=== PATIENT | male | born 1945 | race Caucasian/White ===

== ENCOUNTER → 2019-11-28 10:39 | Outpatient (CLI) | payer OTHER, SELFPAY ==
[2019-11-30 20:58] LABS: COVID19 Sendout Not Detected (Not Detect)
== END ==
PROVIDERS: PCP Family Medicine; Visit Provider Physician Assistant
DX: Z11.59 Encounter for screening for other viral diseases (principal)
CPT/HCPCS: 87635

== ENCOUNTER 2019-12-01 06:10 | Day surgery (SDC) | payer OTHER, SELFPAY ==
[2019-11-24 12:49] VITALS: BMI 27.2
[2019-12-01] VITALS (13 sets, daily range): BP systolic 109–162; BP diastolic 54–91; PULSE 55–94; RESP 14–16; TEMP 35.6–36.6; O2SAT 92–98; BMI 27.2
--- NOTE | 2019-12-01 | DI.RAD.S_ITS ---
PROCEDURE: XR PELVIS 1-2V INDICATIONS: LEFT TOTAL TECHNIQUE: Single view(s) of the pelvis acquired. COMPARISON: None. FINDINGS: Bones: No fractures or dislocations. No suspicious bony lesions. Status post right hip arthroplasty in expected postoperative alignment. The hardware appears intact. Left hip arthroplasty also noted. Soft tissues: Visualized bowel gas pattern is normal. No suspicious soft tissue calcifications. IMPRESSION: Expected postoperative appearance Dictated by: Kip Eid M.D. on 12/01/2019 at 14:46 Approved by: Kip Eid M.D. on 12/01/2019 at 14:48
--- NOTE | 2019-12-01 07:39 | DI.RAD.S_ITS ---
PROCEDURE: XR HIP RT 1V INDICATIONS: post-op. TECHNIQUE: 2 view(s) of the hip acquired. COMPARISON: None. FINDINGS: Bones: Patient is status post and a right hip arthroplasty, with hardware components in expected positions. The hip joint appears congruent. The visualized bony structures appear intact. Soft tissues: Overlying postoperative changes are noted. No suspicious soft tissue densities. IMPRESSION: Normal alignment after right total hip arthroplasty. Dictated by: Blaze Barber M.D. on 12/01/2019 at 10:53 Approved by: Blaze Barber M.D. on 12/01/2019 at 10:54
--- NOTE | 2019-12-01 07:41 | PM.PREOP ---
Pre-operative Note COVID-19 COVID-19 status: Negative Result date/Date tested (Pos, Neg/Pending): 11/28/19 Interval Note History & Physical reviewed/Exam performed by Physician: Yes Changes to H&P: No H&P completed within 30 days and has changed as indicated here:: Plan for right anterior MICHAEL.
[2019-12-01] MEDS: CEFAZOLIN 2 GM/100 ML FROZ.PIGGY IV ×2 (07:45→15:40)
[2019-12-01] MEDS: TRANEXAMIC ACID 1,000 MG VIAL 2000 MG INJ ×2 (08:20→09:43)
--- NOTE | 2019-12-01 08:32 | SUR.OPER ---
Supine on padded Heber table with bilateral legs secured in padded positioning boots and suspended in positioning spars, operative leg in traction per surgeon. Head on one pillow. Arm on non-operative side secured on padded armboard <90 degrees abduction. Arm on operative side padded and resting across chest then secured with tape over sheet. Padded perineal post in place per surgeon.
[2019-12-01] MEDS: ROPIVACAINE 0.5% PF 5 MG/ML 20ML VIAL 10 ML INJ (08:44)
[2019-12-01] MEDS: MORPHINE 4 MG/ML INJ IM (08:45)
[2019-12-01] MEDS: KETOROLAC 30 MG/ML VIAL IV (08:46)
--- NOTE | 2019-12-01 10:01 | P.OP_ITS ---
Operative Date/Time/Diagnoses Date of procedure: 12/01/19 Time of procedure: 10:01 Pre-op diagnosis: right hip OA Post-op diagnosis: same Procedure & Clinicians Procedure: right anterior MICHAEL Same procedure as scheduled: Yes Indications: right hip OA with failed conservative measures Surgeon: Alexey Gutierrez Blocking Machine Operator: Esperanza Pham Anesthesia Type: General and Spinal Operative Notes Findings: right hip OA Closure Type: primary Specimen(s): none sent Prosthetic devices, grafts, tissues, transplants, or devices: [employer]hew 56mm R3 cup 56 x 36mm XLPE neutral liner 25mm screw 15mm screw Anthology femoral stem size 10, high offset Head 36 - 3 oxinium Estimated Blood Loss (mL): 100 Blood products transfused: none Procedure in detail: Patient was met in the preoperative holding area where the site and side of surgery were marked by . All last minute questions were answered. Informed consent had been signed in clinic foot was also reviewed the preoperative holding area. Patient was brought back in the operating room where he received a spinal anesthetic and was then transferred onto the Tecumseh table. Both feet were placed in Tecumseh table boots. He was then induced under general anesthesia. The right hip was then prepped and draped in normal sterile fashion. Surgical time-out was performed verifying the site and side of surgery as well as the name of the patient. A 7 cm long incision centered about 2 cm distal and 1 cm lateral from ASIS was then started with a 10. Blade and carried towards the fibular head. Electrocautery was then used to dissect down to the subcutaneous layer was down to the level of the tensor fascia. Tensor fascia was then incised with a new 10. Blade and Allis clamp was placed on the medial leaflet. The tensor was then retracted medially a Meyerding retractor was then placed over the lateral aspect of the rectus and a Cobra was placed over the superior neck of the femoral neck hemostasis of the ascending circumflex vessels was then achieved using a barnhart it and electrocautery. These were then cut and a Cobra was placed over the inferior neck of the femoral neck giving us good exposure of the capsule. A bent Hohmann placed over the superior lip of the anterior acetabular wall. An inverse T shaped capsulotomy was then performed the superior and inferior leaflets were tagged with a FiberWire stitch cobras were then placed intracapsularly this gave us good exposure of the femoral neck femoral neck was then cut using a reciprocating saw and neck lengths based off of her preoperative template. A corkscrew was then placed in the femoral head the femoral head was removed of soft tissue sleeve protector was then placed into the wound and the labrum was removed. We began reaming with a size 49 Reamer and medialized. Fluoroscopy was then brought in to verify Reamer position and fill. The outlet view of fluoroscopy was matched to the preoperative standing template. Again up sizing reamers by 2 until we got to a size 54 we up sized by 1 to a 55 mm Reamer and had good resistance and chatter. A size 56 mm 3 hole cup was then selected this was then padded using a straight impactor. Fluoroscopy was used to guide inclination and version. Two screws then placed into the cup both a good poor purchase. A 56 x 36 mm neutral liner was then impacted into the cup. A femoral hook was then placed under an need the femur the foot was then externally rotated to 90? and dropped onto the ground. A bent Hohmann was placed outside the capsule between the capsule and the greater trochanter and the capsule was released from the inside portion of the greater trochanter. This allowed us to place a large retractor over the top of the greater trochanter used extra exposure to the short external rotators which were released as needed to bring the femur up into the wound. A 2 prong retractor was then placed over the calcar giving us good exposure to the cup femoral neck. A canal finer was then used followed by a chili pepper broach followed by a size 1 broach and up sizing by 1s and ending with a size 10 broach. We then calcar planed off the size 10 broach and trialed with a high offset with a 36+ 0 head. Hip was stable through range of motion. Leg lengths appeared slightly longer on this side as compared to the contralateral side the hip was then dislocated the trial components were removed a size 10 high offset anthology stem was then selected and malleted into place. A size 36-3 Oxinium head was then selected and malleted onto the trunnion. The wound was then thoroughly irrigated with normal saline the hip was then reduced and the hip was then irrigated with Betadine solution which was thought to sit for several minutes this was then irrigated with copious normal saline. Local injection was then performed infiltrating the capsular flaps as well as the tensor and the subcutaneous tissues. The capsulotomy was then closed using a running Ethibond and the FiberWire tag sutures were removed. A running 1. Vicryl in the tensor fascia was then used followed by 200 Vicryl in the subcutaneous layer followed by a strata Fix suture, Dermabond on skin and Aquacel dressing. Complications: none Post-operative Condition: stable Disposition: PACU Plan for aftercare: WBAT RLE, ASA 81mg BID for 6 weeks, 24 hours post-op abx
--- NOTE | 2019-12-01 11:07 | SUR.PHASEI ---
Report to CARMELINA Gallagher. Pt stable eating and drinking, VSS, moving both feet and knees and in good spirits
--- NOTE | 2019-12-01 11:18 | SUR.PHASEI ---
Transferred to floor in stable condition, handoff to RN in room
--- NOTE | 2019-12-01 11:34 | PC.NURSE ---
Day shift: Pt on unit from PACU at approx 1120. Oriented to room and call light. Pt has been talking about going home today already. Reports no pain and no nausea. Aquacel is CDI. CMS intact. PPP. Call light in reach. Agrees to not get OOB w/o help from staff. Tolerating SCD's. Spouse at bedside for support.
[2019-12-01] MEDS: LACTATED RINGERS 1,000 ML 125 ML IV (11:49)
[2019-12-01] MEDS: ACETAMINOPHEN 325 MG TABLET 650 MG PO (14:58)
--- NOTE | 2019-12-01 16:13 | PT.IIE ---
Current Diagnoses Unilateral primary osteoarthritis, right hip (12/01/19) Surgery Performed Operation Date: 12/01/19 07:45 Actual Procedures p Total Hip Arthroplasty/Anterior Approach(Right) - Alexey Gutierrez MD Surgical History (Last Updated 11/24/19 @ 13:11 by Claribel Perkins, RN) History of arthroplasty of left knee (Acute) History of arthroplasty of right knee (Acute) History of total left hip arthroplasty (Acute) History of vasectomy (Acute ~1982) Hx of foot surgery (Acute 2004) Hx of left inguinal hernia repair (Acute 07/1994) Hx of right inguinal hernia repair (Acute ~2013) Medical History (Last Updated 11/24/19 @ 13:11 by Claribel Perkins RN) Bigeminal rhythm (Acute) Physical Therapy Inpatient Evaluation/Re-Eval M1 PT/OT-IP Prior Functional Status Start: 12/01/19 13:39 Freq: NEEDED Status: Active Protocol: Document 12/01/19 15:51 AW (Rec: 12/01/19 16:13 AW [id number]) Medical Review Prior Functional Status Medical History Reviewed Yes Communication WNL. Mobility and Gait Pt is an independent community ambulator. He walks up to two miles at a time and rides a stationary bike every other day. Pt has history of bilateral TKA and L MICHAEL. Activities of Daily Living and IADL's IND Prior Functional Level (Other details) Pt denies any falls in the last two years Social History Household Members spouse Living Arrangements House Number of Floors (Floors) One Floor Number of Stairs To Enter/Railing? Level entry Home Environment Standard Height Toilet,Walk in Shower,Built-In Shower Seat Home Equipment Hospital Bed,Grab Bars Near Toilet Employment Status Retired Additional Social History Comment Pt lives with his , Sharron, who will be available and able to provide all needed assist. M2 PT-IP Current Condition Start: 12/01/19 13:39 Freq: NEEDED Status: Active Protocol: Document 12/01/19 15:51 AW (Rec: 12/01/19 16:13 AW [id number]) Physical Therapy Current Condition Current Condition Evaluation Date 12/01/19 Treatment Diagnosis L MICHAEL with anterior approach; difficulty in walking Onset Date 12/01/19 Precautions Anterior Hip Precautions No Hip Extension,No Hip External Rotation Weight Bearing Status Weight Bearing Status Weight Bear as Tolerated M3 PT-IP Subjective Start: 12/01/19 13:39 Freq: NEEDED Status: Active Protocol: Document 12/01/19 15:51 AW (Rec: 12/01/19 16:13 AW [id number]) Subjective Physical Therapy Visit Type Type Initial Evaluation Visit Start Time 13:50 Visit Stop Time 14:26 Total Visit Minutes 36 Physical Therapy Visit Comments Patient Comments I think I can leave today. Therapy Pain Assessment Pain When Pain Assessed During Mobility Pain Present Pain Present Pain Reported Location r hip Intensity 2 Scale Used Numeric (0 - 10) Pain Management Techniques Apply Cold,Re-positioning, Timing of Activity with Medications M4 PT-IP Mobility and Gait Start: 12/01/19 13:39 Freq: NEEDED Status: Active Protocol: Document 12/01/19 15:51 AW (Rec: 12/01/19 16:13 AW [id number]) PT-Bed Mobility Assessment Supine to Sit Supine to Sit Standby Assistance,Head of Bed Elevated Scooting Scooting to Edge of Bed Standby Assistance PT-Transfer Assessment Sit to and From Stand Sit to and from Stand Standby Assistance,Use of Upper Extremities Equipment Transfer Assistive Device Gait Belt,Front Wheeled Walker Transfers Transfer Destination Chair Transfer Technique pt ambulated with FWW Transfer Ability Level of Assist Standby Assistance Comments Mobility Comments Pt was reclined in the bed upon PT arrival. He stated he has an adjustable bed at home and usually exits the bed with HOB raised. Supine VS were BP 132/104 HR 64 SpO2 96% on room air. Pt completed supine to sit SBA and sat EOB without UE support for continued assessment. He then stood using FWW SBA and ambulated around the room and souza for a total of 120 feet. Pt was careful to verbalize his movement strategies before moving and showed excellent attention to safety. Pt walked with step-to patterning, leading with the operative leg when moving forward and with the non operative leg when moving backward. Pt returned to the room and sat in the chair as PT discussed assistive devices. Pt stated he had no need for AD. PT advised pt a FWW could be dispensed to him at discharge but pt refused. Pt then stood for gait assessment without AD . He practiced the same patterning as with the walker and completed ~75 feet ambulation without AD. PT again reinforced the rationale for using an AD (either FWW or cane) in this context, including decreased strength and proprioception in the postoperative period as well as increased fall risk due to pain medication. Pt continued to deny need against PT recommendations. Pt was left in the chair with call light and all needs within reach. Gait Assessment Gait Gait Assistance Required: Standby Assistance Distance (Feet) 120 Able to Maintain Weight Bearing Status Yes During Gait Assistive Devices Assistive Device None,Gait Belt,Front Wheeled Walker Gait Deviations General Gait Pattern Antalgic,Decreased Stride Length,Decreased Feet Clearance,Flexed Trunk,Step-to Gait Factors Limiting Gait Function Factors Limiting Gait Function Decreased Activity Tolerance, Decreased Sensation,Decreased Strength,Limited Range of Motion,Pain,Poor Balance,Poor Safety Awareness Comments Gait Comments See mobility comments for details. Stair Climbing Assessment Comments Stair Climbing Comments Not assessed. No stairs at home. PT-Balance Assessment Sitting Balance and Reactions Static Sitting Balance Ability Normal Dynamic Sitting Balance Ability Normal Standing Balance and Reactions Static Standing Balance Ability Good Dynamic Standing Balance Ability Good Device Used with and without FWW M5 PT-IP Objective Assessments Start: 12/01/19 13:39 Freq: NEEDED Status: Active Protocol: Document 12/01/19 15:51 AW (Rec: 12/01/19 16:13 AW [id number]) Orientation Orientation/Cognition Level of Alertness Alert Orientation Name,Day of Week,Place, Situation Language Function Ability No Deficits Noted Safety Awareness Decreased Safety Awareness Memory Description No Deficits Noted Gross Range of Motion Upper Extremity ROM Assessment Within Functional Limits Lower Extremity ROM Assessment Right Impaired Strength Upper Extremity Strength Assessment Within Functional Limits Lower Extremity Strength Assessment Right Impaired Comments Strength Comments LLE grossly 5/5 Coordination Assessment Gross Coordination Gross Coordination WNL Sensation Assessment Sensation Gross Sensation Right LE Impaired Proprioception (Position) Impaired Muscle Tone Muscle Tone WNL Yes M6 PT-IP Treatment Start: 12/01/19 13:39 Freq: NEEDED Status: Active Protocol: Document 12/01/19 15:51 AW (Rec: 12/01/19 16:13 AW [id number]) Physical Therapy Treatment Exercises Exercises Ankle Pumps,Gluteal Sets,Quad Sets,Heel Slides Education Education Provided Precautions,Weight Bearing Status,Post-Op Packet,Safety Other Treatments Other Treatment Performed Provided education on role of PT, plan of care, weightbearing status, anterior hip precautions, and rationale for use of an assistive device. M7 PT-IP Assessment and Plan Start: 12/01/19 13:39 Freq: NEEDED Status: Active Protocol: Document 12/01/19 15:51 AW (Rec: 12/01/19 16:13 AW [id number]) PT Summary Assessment and Plan Potential Rehabilitation Potential Good Status of Condition at Evaluation Evolving Summary Impairments Pain,ROM,Strength,Balance, Sensation,Bed Mobility, Transfers,Gait,Activity Tolerance Assessment Summary Foreign is a 74 yo man seen for PT evaluation on POD0 following R MICHAEL with anterior approach. He is independent in all regards at baseline. He lives with his , Sharron, who is available and able to assist at discharge. On evaluation, pt was careful and showed good awareness of hip precautions, requiring SBA for all mobility with and without FWW. Gait without AD was assessed due to pt's insistence that he would not use a walker or a cane. PT strongly recommended use of an AD and emphasized the risk factors for falling without one. Pt ultimately refused, demonstrating poor insight into his condition. However, pt has had both knees replaced and underwent L MICHAEL in 2018 so he does have experience with his current condition. Pt would be safest to discharge with an assistive device but is refusing. Pt will go home with spouse assist once medicallly cleared. Goals Bed Mobility Goal Independent Transfer Goal Independent,Cane,Front Wheeled Walker Gait Goal Independent,Cane,Front Wheel Walker Gait Distance 300 Other Goals * transfer and gait goals to be achieved with LRAD Days to Meet Goals 2 Frequency of Treatment Frequency Of Treatment Twice a Day Treatment Plan Physical Therapy Treatment Plan Bed Mobility Training,Transfer Training,Gait Training, Therapeutic Exercise,Balance Retraining,Post Op Education, Discharge Planning,Hot or Cold Pack,Neuromuscular Re-ed Other Recommendations and Next Treatment gait training with LRAD; Focus reinforce precautions Recommendations To Nursing Amount of Assist Needed Standby Assistance Discharge Recommendations PT Discharge Recommendations Home with Assistance, Outpatient PT Equipment Needed for Home Before FWW (pt refuses) Discharge Transportation Needs at Discharge Private Vehicle
--- NOTE | 2019-12-01 18:01 | PM.DS.1 ---
History of Present Illness History of Present Illness Date Patient Seen: 12/01/19 Time Patient Seen: 18:01 Chief complaint: R Total Hip Arthroplasty/Anterior Approach *OPB* Narrative: Patient admitted today for right anterior MICHAEL. Doing well this afternoon. Cleared PT and wishes to DC home. Discharge Providers Provider Discharge Date: 12/01/19 Primary care physician: Nestor López Consults: 11/26/19 07:27 Consult to Anesthesiology Routine Comment: Consulting Provider: Anesthesiologist Reason for consultation: PAC courtesy re: Abnormal Pre-op EKG 12/01/19 07:38 Consult to Anesthesiology Routine Comment: Consulting Provider: Anesthesiologist Reason for consultation: Regional block for post operative pain control 12/01/19 11:20 Consult to Discharge Planning Routine Comment: Consult to Physical Therapy Evaluate & Treat Comment: Physician Instructions: post op MICHAEL protocol Consult to Respiratory Therapy Evaluate & Treat Comment: Physician Instructions: Evaluate and treat Discharge provider: Alexey Gutierrez MD Summary Hospital Course Discharge Diagnosis: s/p right anteiror MICHAEL Hospital Course: Admitted this am for scheduled right anterior MICHAEL. Did well post-op. Pain is well controlled. Cleared PT. Wishes to DC home this afternoon. Status at Discharge Cognitive/behavioral status at discharge: oriented Overall status at discharge: patient is progressing back to baseline Time Spent with Patient Time spent: Less than 30 minutes Exam Vital Signs (past 8 hours): - 12/01/19 10:25 12/01/19 10:29 12/01/19 10:34 Temperature 97.9 F Pulse Rate 60 60 60 Respiratory Rate 15 14 15 Blood Pressure 117/73 109/54 L 122/70 Pulse Oximetry 94 94 93 12/01/19 10:39 12/01/19 10:55 12/01/19 11:15 Temperature 97.5 F L 96.1 F L Pulse Rate 58 L 60 55 L Respiratory Rate 15 15 16 Blood Pressure 127/71 121/71 131/72 Pulse Oximetry 96 97 97 12/01/19 11:45 12/01/19 12:15 12/01/19 13:15 Temperature 96.6 F L 97.2 F L Pulse Rate 55 L 63 56 L Respiratory Rate 15 15 15 Blood Pressure 120/91 H 121/79 147/84 H Pulse Oximetry 97 97 92 12/01/19 14:03 12/01/19 14:46 12/01/19 15:50 Temperature 97.7 F 96.7 F L Pulse Rate 69 80 94 H Respiratory Rate 14 15 16 Blood Pressure 133/91 H 129/86 Pulse Oximetry 96 96 96 Oxygen Delivery Method Room Air Oxygen Flow Rate 0 Discharge Plan Discharge Plan Patient Disposition: Home Discharge comment: DC home when cleared by PT Discharge Med Rec/Prescriptions Prescriptions: New acetaminophen 325 mg Tablet 650 mg PO TID 14 Days Qty: 84 RF: 0 aspirin 81 mg Tablet,Delayed Release (Dr/Ec) 81 mg PO BID Qty: 84 RF: 0 oxycodone 5 mg Tablet 5 mg PO Q3HR PRN (Reason: Pain, Moderate (4-6)) Qty: 60 RF: 0 Continued atorvastatin 20 mg Tablet 20 mg PO DAILY RF: 0 Discontinued naproxen sodium [Aleve] 220 mg Capsule 440 mg PO DAILY PRN (Reason: Pain) RF: 0 Follow up/Referrals: Alexey Gutierrez MD [Physician] - 2 Weeks Discharge Orders: Discharge (Order); Ordered 12/01/19 Ordered By: Alexey Gutierrez Provider Discharge Instructions Diet: Regular Activity: WBAT RLE Skin/Wound/Dressing Care Dressing: Leave the dressing in place until your post-op appointment Other wound treatment: OK to shower over the dressing. Blot dry afterward. No bathing or soaking of the incision Visit Report/Discharge Packet Instructions: DI for Hip Replacement Discharge Data Primary Care Provider: Nestor López Attending Provider: Alexey Gutierrez
[2019-12-01 18:41] LABS: Add Manual Diff / Slide Review NO; Basophils Absolute Auto 0 /uL (0-100); Basophils Percent Auto 0.2 % (0-2); Eosinophils Absolute Auto 0 /uL (0-450); Hematocrit 37.5 % (41-53); Hemoglobin 12.8 g/dL (13.5-17.5); Lymphocytes Absolute Auto 600 /uL (1100-4500); Lymphocytes Percent Auto 4.7 % (25-40); Mean Corpuscular HGB Conc 34.2 % (30-36); Mean Corpuscular Hemoglobin 32.2 PG (26-34); Mean Corpuscular Volume 94.2 fL (80-100); Monocytes Absolute Auto 400 /uL (0-900); Neutrophils Absolute Auto 11800 /uL (1500-7000); Neutrophils Percent Auto 92.1 % (50-75); Platelet Count 203 X10^3/uL (150-400); Red Blood Cell Count 3.98 X10^6/uL (4.5-5.9); Red Cell Distribution Width 12.8 % (11.6-14.8); White Blood Cell Count 12.8 X10^3/uL (4.5-11.0)
--- NOTE | 2019-12-01 20:03 | PC.NURSE ---
Discharge Note Patient A&O, VSS, RA. CMS intact, dress C/D/I. No complaints of pain or discomfort. Discharge information reviewed with patient and . No questions or concerns. PIV discontinued. Patient belongings packed and given to along with discharge instructions. Patient taken down via wheelchair to personal vehicle.
== END 2019-12-01 18:35 | disposition home or self-care (01) ==
LOC: OR 06:14 → AC 06:15
PROVIDERS: PCP Family Medicine; Referring Provider Family Medicine; Visit Provider Orthopaedic Surgery Adult Reconstructive Orthopaedic Surgery
PROC: (CPT 27130; principal; 2019-12-01 07:45)
DX: M16.11 Unilateral primary osteoarthritis, right hip (principal)
CPT/HCPCS: 27130; 36415; 72170; 73501; 76000; 85025; 97116; 97161; C1776; J0690; J1100; J1885; J2250; J2270; J2405; J2704; J3010

== ENCOUNTER → 2021-12-26 13:20 | Outpatient (CLI) | payer OTHER, SELFPAY ==
[2019-12-01 11:51] VITALS: BMI 27.2
[2021-12-26 14:11] LABS: COVID19 -Nasal RAPID Negative (Negative)
== END ==
PROVIDERS: PCP Family Medicine; Referring Provider Podiatrist; Visit Provider Podiatrist
DX: Z20.822 Contact with and (suspected) exposure to COVID-19 (principal)
CPT/HCPCS: 87635; C9803

== ENCOUNTER 2021-12-29 07:25 | Day surgery (SDC) | payer OTHER, SELFPAY ==
[2019-12-01 11:51] VITALS: BMI 27.2
[2021-12-21 08:16] VITALS: BMI 26.1
[2021-12-29] VITALS (7 sets, daily range): BP systolic 149–185; BP diastolic 85–112; PULSE 51–80; RESP 15–21; TEMP 36.3; O2SAT 95–98; BMI 26.1
[2021-12-29] MEDS: LACTATED RINGERS 1,000 ML 100 ML IV (08:08)
--- NOTE | 2021-12-29 09:24 | PM.PREOP ---
Pre-operative Note COVID-19 COVID-19 status: Negative Result date/Date tested (Pos, Neg/Pending): 12/26/21 Interval Note History & Physical reviewed/Exam performed by Physician: Yes Changes to H&P: No
--- NOTE | 2021-12-29 09:25 | P.OP_ITS ---
Operative Date/Time/Diagnoses Date of procedure: 12/29/21 Time of procedure: 09:25 Pre-op diagnosis: Right great toe joints painful arthritis Post-op diagnosis: same Procedure & Clinicians Procedure: 1. Right first metatarsophalangeal arthrodesis 2. Right first interphalangeal joint exostectomy Same procedure as scheduled: Yes Indications: 76-year-old male with ongoing pain and arthritis to the right great toe joints. Conservative measures have failed to alleviate his pain and he wished to have surgical intervention. We spoke of the risks, potential complications, as well as expected outcomes and alternatives. Consent was signed, no contraindications to the procedure at this time. Surgeon: Sara Gonzalez Click Yes if Unassisted: Yes Anesthesia Type: General Operative Notes Closure Type: primary Specimen(s): none sent Prosthetic devices, grafts, tissues, transplants, or devices: [place] great toe fusion neutral plate, 4.0 cannulated screw, 3.5 screws (x6). Estimated Blood Loss (mL): 20 Blood products transfused: none Tourniquet time (min): 99 Procedure in detail: The patient was brought to the operating room and placed on the operating table in the supine position. A tourniquet was placed about the patient's right thigh. After induction of general anesthesia the foot and ankle were prepped and draped in the usual aseptic manner. The tourniquet was inflated. Incision was made over the dorsal aspect of the right 1st metatarsophalangeal joint extending to the interphalangeal joint. The incision was deepened through subcutaneous tissues being careful to identify and retract all vital neurovascular structures. All bleeders were cauterized and ligated necessary. A significant amount of degenerative exostoses were noted to the dorsal medial and lateral 1st metatarsophalangeal joint. The capsule was opened and I also noted an enlarged medial eminence of the 1st metatarsal head. A saw was used to resect the medial eminence enlargement as well as the prominent areas of spurring at the 1st metatarsophalangeal joint. The joint showed near complete loss of the articular cartilage on the 1st metatarsal head and phalangeal base with remodeling of both side of the joint to more flattened rather than convex/concave attitude. Osteophytes and joint mice removed from dorsal aspectof joint. A saw was used to remove the cartilage off of head of metatarsal and base of phalanx. This was revised to allow for angulation in appropriate alignment at first metatarsophalangeal joint. Osteotome champfering and drilling using a 0.062 k-wire was performed gently to prepare either side of the former joint. The area was irrigated with copious amount of normal sterile saline. Plate was tested under mini C-arm to verify appropriate size and location. Next, at the dorsal hallux interphalangeal joint, the extensor tendon was reflected to expose significant spurring built up at the joint. Using a rongeur, spurring was reduced and excised from the area, although not fully. It was found through this process that a segment of the extensor tendon was very invested in the bony spurring and had itself, aspects of ostosis. Decision was made to not proceed beyond a certain amount of removal of the bone and a rasp was used to reduce the remaining enlargement to allow for smoother area. The interphalangeal joint still was not showing significant motion, but some was available. Area irrigated with normal saline. Temporary fixation across the first metatarsal phalangeal joint was placed with a guidewire and this was checked under C-arm to be in appropriate alignment. This was done with the guide and the plate attached. Using the aid of fluoroscopy, the guide wire was used as cannulation for the drill for a lag screw from the distal medial to proximal lateral 1st metatarsal phalangeal joint. Confirmed appropriate in all 3 planes, a partially threaded 4.0 screw was placed and the guidewire removed. Good strength and reduction of the former joint. Guidewire removed. Plate was placed and with the aid of fluoroscopy a series of locking screws and a nonlocking screw were placed across the plate and joint, well-seated and this was checked on C-arm in 3 planes. The area is irrigated with copious amounts normal sterile saline. The tourniquet was deflated and prompt hyperemic response was seen to the foot. No motion was noted at the 1st MTPJ. Subcutaneous closure was performed using Vicryl and nylon was used to close the skin. A sterile lightly compressive dressing was placed on the foot and he was placed in his postoperative boot. He was transferred to the PACU with vital signs stable and vascular status intact. Complications: none Post-operative Condition: stable Disposition: PACU Plan for aftercare: Following a period of postoperative monitoring, the patient be discharged to home on written and oral postoperative instructions including keeping the dressing dry and intact, no weightbearing to the surgical foot, icing and elevating the foot when seated home. DVT prevention techniques have been reviewed. X-rays at post op week four.
[2021-12-29] MEDS: CEFAZOLIN 2 GM/100 ML PREMIX 100 ML IV (09:30)
--- NOTE | 2021-12-29 10:01 | SUR.OPER ---
Supine on padded OR bed, head on pillow, arms secured on padded arm boards at <90 degrees abduction, legs uncrossed, safety belt at waist, tape over blanket over lower left leg, right leg draped free with gel bump under right hip.
[2021-12-29] MEDS: BUPIVACAINE 0.5% (PF) VIAL 30 ML INJ (10:10)
[2021-12-29] MEDS: LACTATED RINGERS 1,000 ML 42 ML IV (11:51)
== END 2021-12-29 13:00 | disposition home or self-care (01) ==
PROVIDERS: PCP Family Medicine; Referring Provider Family Medicine; Visit Provider Podiatrist
PROC: (CPT 28750; principal; 2021-12-29 09:15)
DX: M20.21 Hallux rigidus, right foot (principal); M79.671 Pain in right foot; M19.071 Primary osteoarthritis, right ankle and foot
CPT/HCPCS: 28750; C1734; J0690; J1100; J2405; J2704; J3010